=== PATIENT | female | born 1940 | race Caucasian/White ===

== ENCOUNTER → 2017-04-26 | Outpatient (CLI) | payer OTHER ==
[~2017-04-26] MED LIST: CALC200T3 PO; HYDR-3240 PO; ONDA4TAB10 PO; ONDA4TAB7 PO
== END | disposition home or self-care (01) ==
LOC: CFH 15:53
PROVIDERS: ATTEND Registered Nurse
DX: S09.90XA Unspecified injury of head, initial encounter (principal); R51 Headache; X58.XXXA Exposure to other specified factors, initial encounter; Y93.89 Activity, other specified; Y92.89 Other specified places as the place of occurrence of the external cause; Y99.8 Other external cause status
CPT/HCPCS: 70450

== ENCOUNTER → 2018-01-17 | Outpatient (CLI) | payer OTHER ==
[~2018-01-17] MED LIST changes: +GADOBUTROL 7.5 MMOL/7.5 ML PFS ONE
[2018-01-17 16:34] LABS: CREATININE 0.74 mg/dL (0.55-1.02)
== END | disposition home or self-care (01) ==
LOC: RAD 15:24
PROVIDERS: ATTEND Registered Nurse
DX: I67.82 Cerebral ischemia (principal); H53.8 Other visual disturbances; R51 Headache; R42 Dizziness and giddiness
CPT/HCPCS: 36415; 70553; 82565; A9585

== ENCOUNTER → 2018-06-05 | Outpatient (CLI) | payer OTHER ==
[~2018-06-05] MED LIST changes: -GADOBUTROL 7.5 MMOL/7.5 ML PFS ONE
== END | disposition home or self-care (01) ==
LOC: RAD 16:32
PROVIDERS: ATTEND Physician Assistant
DX: M71.22 Synovial cyst of popliteal space [Baker], left knee (principal)